=== PATIENT | female | born 1985 | race African-American/Black ===

== ENCOUNTER 2018-08-13 13:07 | Outpatient (CLI) | payer MEDICAID ==
[~2018-08-13] VITALS: Ht 177.8 cm; Wt 64.9 kg
[2018-08-13 15:09] VITALS: BP 112/68
[2018-08-13] MEDS ORDERED: ACCUTANE (15:09)
--- NOTE | 2018-08-13 23:31 | Consultation ---
DATE OF CONSULTATION: 08/13/2018 CONSULTING PHYSICIAN: Evan Hyde M.D. CHIEF COMPLAINT: Diarrhea. HISTORY OF PRESENT ILLNESS: This is a 32-year-old female without any other medical problems, presents with the complaint of diarrhea. the patient is having abdominal bloating, pain, diarrhea for many years. She has again had a full workup including stool studies, which did not show any acute infection. She was given some probiotics, which helped her a little bit. Denies any bleeding. Denies any watery diarrhea. It is basically loose stools 4 to 5 times a day. No significant weight loss. No nausea. No vomiting. No dysphagia. No odynophagia. PAST MEDICAL HISTORY: Acne. PAST SURGICAL HISTORY: Tonsillectomy. MEDICATIONS: She used to be on Accutane for many years, but now she is only taking probiotics. FAMILY HISTORY: Mother had breast cancer. SOCIAL HISTORY: The patient denies any tobacco, alcohol, or IV drug abuse. She is vegan. ALLERGIES: No known drug allergies. REVIEW OF SYSTEMS: A 10-point review of systems was performed. Pertinent positives in HPI. PHYSICAL EXAMINATION: VITAL SIGNS: Temperature 97.8, blood pressure 112/68, pulse 80, respirations 20. HEENT: Normocephalic and atraumatic. Sclerae anicteric. NECK: Supple. No evidence of obvious lymphadenopathy. CARDIOVASCULAR: Regular rate and rhythm. Plus S1 and S2. No obvious murmur. LUNGS: Clear to auscultation bilaterally. ABDOMEN: Positive bowel sounds. Soft and nontender. No rebound. No guarding. No peritoneal sign. EXTREMITIES: No cyanosis, no clubbing, no edema. ASSESSMENT AND PLAN: This is a 32-year-old female with chronic diarrhea. Differential diagnosis would be microscopic colitis, IBS-induced diarrhea, possible SIBO. The patient has already been tried on lactose-free diet and also she has tried two probiotics. She also had blood test done for allergy and she stated she was told that she is not allergic to gluten. Our plan will be to do a colonoscopy to rule out microscopic colitis cause of chronic diarrhea. If that is negative, we are going to do a trial of the Viberzi and if that failed, we will focus on treating for possible SIBO with Xifaxan. Plan was explained to the patient. She agreed, so hopefully we will do a colonoscopy as soon as the authorization is approved. Evan Hyde M.D. DR: RAJESH JOB#: [id number] CC:
== END 2018-08-13 15:07 | disposition home or self-care (01) ==
LOC: PAN 13:07
DX: R19.7 Diarrhea, unspecified (principal)
CPT/HCPCS: 99202